=== PATIENT | male | born 1995 | race Caucasian/White ===

== ENCOUNTER 2018-10-20 18:00 | Emergency (ER) | payer BC ==
[~2018-10-20] VITALS: Ht 180.3 cm; Wt 72.6 kg
[2018-10-20 18:09] VITALS: BP 147/95
[2018-10-20] MEDS ORDERED: IBUPROFEN 600 MG TABLET PO ONE ×2 (18:37→19:00)
== END 2018-10-20 18:51 | disposition home or self-care (01) ==
LOC: ER 18:03
DX: M54.41 Lumbago with sciatica, right side (principal); F17.200 Nicotine dependence, unspecified, uncomplicated